=== PATIENT | male | born 1965 | race Caucasian/White ===

== ENCOUNTER → 2019-05-20 | Outpatient (REF) ==
--- NOTE | 2019-05-21 05:19 | REP ---
Clinical: Thoracic back pain. Technique: AP, lateral, swimmers views of the thoracic spine. Findings: Alignment and kyphosis maintained. Mild generalized osteopenia and degenerative changes include endplate sclerosis with marginal spurring/osteophyte formation. No acute fracture / compression injury or subluxation. Impression: Mild osteopenia and multilevel degenerative spondylosis. Electronically Signed by Jaleel Ragsdale MD 05/21/2019 05:10 A
--- NOTE | 2019-05-21 05:20 | REP ---
Clinical: Cervical neck pain. Technique: AP, lateral, open mouth views of the cervical spine. Findings: Alignment is maintained. No acute fracture / compression injury or subluxation. Mild degenerative changes include endplate sclerosis with marginal spurring at C5-6, C6-7. Surrounding soft tissues are unremarkable. Impression: Mild essentially age-related degenerative spondylosis at C5-6 and C6-7. Electronically Signed by Jaleel Ragsdale MD 05/21/2019 05:12 A
== END ==
LOC: M SMT 12:08
PROVIDERS: ATTEND Internal Medicine
DX: Z02.71 Encounter for disability determination (principal)